=== PATIENT | female | born 1990 | race Caucasian/White ===

== ENCOUNTER 2016-07-12 18:57 | Emergency (ER) | payer OTHER ==
[~2016-07-12 18:57] MED LIST: ADVA500A INH; ALBU0.63 NEB; ALBUAER3 INH; MACR100C2 PO
--- NOTE | 2016-07-12 20:05 | PD ---
HPI Chief Complaint low back pain Date Seen: Jul 12, 2016 Time Seen: 20:09 Travel History International Travel<30 Days: No Contact w/Intl Traveler<30Days: No Known Affected Area: No History of Present Illness HPI Ms. Jones is a 25 yr old at 37 and 5/7 weeks gestation by (LMP 10/18/2015, SERA 07/28/2015) who presents to the OB ED with low back pain. She states that she had significant low back pain around 4PM today, she went to sleep, woke up with continued pain, and she decided to come in. The pain is continuous in the lower back. She denies any trauma. She states that she has bandlike abdominal pain occurring every 15 minutes since 4 PM. She denies leakage of fluid, vaginal bleeding, and contractions. She feels baby moving regularly. She denies N/V/D/fever/calf pain/dizziness/seeing spots. She has no dysuria. She states she vomited once this evening. She endorses shortness of breath, chronic. She states she has chronic headaches, and that these and abdominal pain is relieved with Tylenol. OB care is with Dr. Ankit Benitez at the [facility]. Patient states she never wants Vistaril because it "stops labor" and does not want pain medications because she has to drive tonight at work. She denies having any high blood pressure this . She states that she had an abnormal glucose tolerance test but ate just prior to testing. She has not had repeat glucose tolerance testing. 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 Last Menstrual Period: Oct 18, 2015 History Past Medical History Narrative Medical WPW s/p ablation at age 16 Asthma PCOS Obstetric History Obstetric History , states she did not feel contractions with first child (uncomplicated ) Past Surgical History Narrative Surgical D&C after having first child Cardiac ablation Family History Narrative Family History None reported Social History Alcohol Use: No Tobacco Use: No (endorses tobacco use prior to ) Substance Abuse: No Allergies-Medications (Allergen,Severity, Reaction): Coded Allergies: Penicillin (Verified Allergy, Unknown, 06/29/16) Home Meds Active Scripts Nitrofurantoin Monohydrate Macrocrystals (Macrobid)100 Mg [id number] Mg PO BID #14 CAP Ref 0 Prov:Ankit Benitez MD R2 05/26/16 Reported Medications Fluticasone-Salmeterol Inh (Advair Diskus Inh)Unknown Strength AerUnknown Dose INH BID #1 INHALER Ref 0 Rinse mouth after use. 05/09/16 Albuterol 8.5 GM Inh (Proair Hfa 8.5 GM Inh)Unknown Strength AerUnknown Dose INH Q4-6H PRN (SHORTNESS OF BREATH) #1 INHALER Ref 0 108 mcg/actuation 05/09/16 Albuterol Neb Unknown Strength NebUnknown Dose NEB Q4HR NEB PRN (SHORTNESS OF BREATH) #25 NEBULE Ref 0 05/09/16 Review of Systems General / Constitutional: No: Fever, Chills Eyes: No: Diploplia, Blurred Vision HENT: No: Headaches Cardiovascular: Irregular Rhythm (intermittent) Respiratory: Short of Breath (chronic) Gastrointestinal: Vomiting, No: Nausea Physical Exam Narrative GENERAL: Well-nourished, well-developed female sitting up in bed in no acute distress. Obese and upset. Uses profanity often during encounter. SKIN: Warm and dry. Multiple tattoos on LEs. HEAD: Normocephalic and atraumatic. EYES: No scleral icterus. No injection or drainage. ENT: No nasal drainage noted. Mucous membranes pink. Airway patent. NECK: Supple, trachea midline. No JVD. CARDIOVASCULAR: Regular rate and rhythm without murmurs, gallops, or rubs. RESPIRATORY: Breath sounds equal bilaterally. No accessory muscle use. ABDOMEN/GI: Abdomen obese, gravid, non-tender, bowel sounds present, no rebound , no guarding BACK: normal spinal alignment, no spinal or CVA tenderness GENITOURINARY: External Genitalia: intact and normal in appearance Cervix: soft, posterior Dilatation: 3 Effacement: 20% Station: -3 Presentation: vertex Membranes: intact Uterine Contractions: none FHT's: Category: 1 Baseline: 144 Reactive: + Variability: mod Decels: none EXTREMITIES: No cyanosis. 1+ edema to ankles bilaterally. BACK: Nontender without obvious deformity. No CVA tenderness. NEUROLOGICAL: Awake and alert. Motor and sensory grossly within normal limits. Five out of 5 muscle strength in all muscle groups. Normal speech. Data Data Vital Signs Reviewed: Yes (125/85, pulse 112, respiratory rate 22, temperature 98.5.) Orders strip, VS Labs No labs indicated MDM Medical Record Reviewed: Yes Narrative Course / MDM 25-year-old at 37 and 5/7 weeks evening with low back pain and bandlike abdominal pain, consistency with -related pain ([facility]-[facility] vs MSK). She is not in labor. Intrauterine : Category 1 tracing No ROM Not in labor Cervical exam: 3/20%/-3, limited change in the last week Blood pressure within normal limits Abdominal pain benign by history and exam: no dysuria or fevers, no tenderness to palpation Patient refuses pain medications Discharge home with recommendations to follow-up with Dr. Eli Brown, SDW Dr. Gaston, PGY3 Diagnosis Diagnosis: Primary Impression: 37 weeks gestation of Additional Impression: Round ligament pain Disposition: 01 DISCHARGE HOME Condition: Stable Patient Instructions: General Instructions, Early Labor Signs (ED), Having Your Baby: The Labor Process (GEN) Additional Instructions: RETURN FOR CONTRACTIONS, LOSS OF FLUID (WATER BREAKING), VAGINAL BLEEDING, OR DECREASED MOVEMENT. DRINK 8-10 LARGE GLASSES OF WATER EVERY DAY. KEEP SCHEDULED APPOINTMENT WITH YOUR PROVIDER. Departure Forms: Tests/Procedures Ida Hammond MD R1 Jul 12, 2016 20:05
== END 2016-07-12 20:00 | disposition home or self-care (01) ==
LOC: HOBED 18:57
DX: O26.893 Other specified pregnancy related conditions, third trimester (principal); R10.2 Pelvic and perineal pain; M54.5 Low back pain; J45.909 Unspecified asthma, uncomplicated; R06.02 Shortness of breath; Z3A.37 37 weeks gestation of pregnancy
CPT/HCPCS: 59025